=== PATIENT | female | born 1960 | race Caucasian/White ===

== ENCOUNTER → 2017-08-13 | Outpatient (CLI) | payer OTHER ==
--- NOTE | 2017-08-13 10:56 | RADIOLOGY IMAGING REPORT ---
FACILITY: [facility] - [place] PATIENT NAME: Taylor Diaz : 1960 MR: [id number] V: [id number] EXAM DATE: ORDERING PHYSICIAN: TEMITOPE SOL TECHNOLOGIST: Location: [facility] Patient: Taylor Diaz : 1960 Visit/Account:[id number] Date of Sevice: 08/13/2017 DEXA Scan Clinical history: Postmenopausal, ovarian failure, low back pain x10 years. Comparison: None available. LUMBAR SPINE: The bone mineral density (BMD) measured from L1-L4 correlates with a Z-score -0.9 and a T-score of -0 .7 which is Normal as defined by the World Health Organization. The corresponding risk of fracture i n the lumbar spine is 1-2 times increased compared with a young adult reference population. HIP: Bone mineral density (BMD) measured in the Left total hip region correlates with a Z-score -0.1 and a T-score of -0.1 which is Normal as defined by the World Health Organization. The corresponding risk of fracture in the hip is Not increased compared with a young adult reference population. T score left femoral neck -0.9 Bone mineral density (BMD) measured in the Femoral Neck region measures 0.915 g/cm2. Impression: 1. Lumbar spine: Normal. 2. Left Hip: Normal. 3. Femoral Neck: Bone Mineral Density is 0.915 g/cm2 T score the left femoral neck -0.9 falls withi n the normal range The next DEXA scan of this patient should include the following sites: L1-L4 and the left hip. FRAX? WHO Fracture Risk Assessment Tool link: <http://www.shef.ac.uk/FRAX/tool.jsp?locationValue=9> PLEASE NOTE: 1) The World Health Organization defines low BMD as follows: T-score Normal > -1 Osteopenia < -1 and > -2.5 Osteoporosis < -2.5 without fractures Established osteoporosis < -2.5 with fractures 2) In general, you may wish to consider: Diagnosis Treatment Follow-up DEXA Normal BMD Prevention 2-3 years Osteopenia Prevention/therapy 1-2 years Osteoporosis Therapy Yearly 3) Fracture risk estimated from the T-score is more accurate for vertebral fractures (often spontane ous) than for hip fractures. Report Dictated By: Siobhan Walker MD at 08/13/2017 10:52 AM Report E-Signed By: Siobhan Walker MD at 08/13/2017 10:53 AM AIYANAN:LY
--- NOTE | 2017-08-13 16:24 | RADIOLOGY IMAGING REPORT ---
FACILITY: [facility] PATIENT NAME: BROOKE CARR : [id number] MR: [id number] V: [id number] EXAM DATE: ORDERING PHYSICIAN: TEMITOPE SOL TECHNOLOGIST: Yisel Patrick PROCEDURE:BILATERAL DIGITAL SCREENING MAMMOGRAM WITH CAD ASSISTED INTERPRETATION & 3D TOMOSYNTHESIS COMPARISON:Prior mammograms 07/31/16, 07/07/15, 07/06/14, 10/14/12, 10/04/11. INDICATIONS:SCREENING FINDINGS: Mildly heterogeneous fibroglandular tissue is seen throughout the breasts. Most of the parenchymal pattern has remained stable allowing for difference in mammographic technique & patient positioning. There is a focal area of increased density in the upper portion of the Left breast on the Left MLO view in Zone 3 for which Spot compression view is recommended a Left XCC view is also recommended. DIAGNOSTIC CATEGORY 0--INCOMPLETE: NEED ADDITIONAL IMAGING EVALUATION. RECOMMENDATIONS: ADDITIONAL MAMMOGRAPHIC VIEWS REQUIRED: LEFT BREAST. IMPRESSION: BIRADS 0: Incomplete Additional view of Left breast recommended. Dictated by: Siobhan Walker M.D. on 08/13/2017 at 9:42 Transcribed by: TEVIN on 08/13/2017 at 9:55 Approved by: Siobhan Walker M.D. on 08/13/2017 at 16:23 [facility]
== END ==
LOC: MAMO 02:23
PROVIDERS: ATTEND Nurse Practitioner Family
DX: Z13.820 Encounter for screening for osteoporosis (principal); Z12.31 Encounter for screening mammogram for malignant neoplasm of breast; R92.8 Other abnormal and inconclusive findings on diagnostic imaging of breast; E28.39 Other primary ovarian failure
CPT/HCPCS: 77063; 77067; 77080

== ENCOUNTER → 2017-08-22 | Outpatient (CLI) | payer OTHER ==
--- NOTE | 2017-08-23 09:47 | RADIOLOGY IMAGING REPORT ---
FACILITY: [facility] [place] PATIENT NAME: BROOKE CARR : [id number] MR: [id number] V: [id number] EXAM DATE: ORDERING PHYSICIAN: TEMITOPE SOL TECHNOLOGIST: Gayla Alan PROCEDURE:US LEFT BREAST COMPARISON:None. INDICATIONS:FURTHER EVAL FINDINGS: In the 2 o'clock position Left breast 12cm from the nipple there is a cluster of cysts measuring 8mm collectively. In the 2 o'clock position Left breast 14cm from the nipple there is a cyst measuring 9.4mm in diameter. In the 1 o'clock position Left breast 9cm from the nipple there is a 5mm cyst. In the 4 o'clock position Left breast 9cm from the nipple there is a 1cm cyst. Several lipomas were also identified one in the 12 o'clock position measuring 1.5cm in diameter one in the 3 o'clock position measuring 1cm in diameter. DIAGNOSTIC CATEGORY 3--PROBABLY BENIGN FINDING. RECOMMENDATIONS: SIX MONTH FOLLOW-UP DIAGNOSTIC MAMMOGRAM: LEFT BREAST. IMPRESSION: BIRADS 3: Probably benign finding There are multiple Left sided breast cysts as described and 2 lipomas. A 6 month follow-up Left mammogram is recommended as described in Today's Left mammogram report. Dictated by: Siobhan Walker M.D. on 08/22/2017 at 16:03 Transcribed by: TEVIN on 08/23/2017 at 8:50 Approved by: Siobhan Walker M.D. on 08/23/2017 at 9:46 [facility]
--- NOTE | 2017-08-23 09:47 | RADIOLOGY IMAGING REPORT ---
FACILITY: [facility] PATIENT NAME: BROOKE CARR : [id number] MR: [id number] V: [id number] EXAM DATE: [id number] ORDERING PHYSICIAN: TEMITOPE SOL TECHNOLOGIST: Jannette Galeana PROCEDURE:LEFT DIGITAL DIAGNOSTIC MAMMOGRAM WITH CAD ASSISTED INTERPRETATION & 3D TOMOSYNTHESIS COMPARISON:Prior mammograms 08/13/17, 07/31/16, 07/07/15, 07/06/14, 10/14/12, 10/04/11. INDICATIONS:FURTHER EVAL FINDINGS: Patient returns for Spot compression views in the Left MLO projection, a Left XCC view and Left medial lateral view. A small amount of fibroglandular tissue is seen throughout the Left breast. The focal area of increased density in the upper outer portion of the Left breast found 3 on the prior Left MLO view is re-demonstrated. This was also demonstrated in the far lateral portion of the Left breast on the Left XCC view. Today's Left breast Ultrasound did demonstrate multiple cysts in the 1, 2 & 4 o'clock positions of the Left breast which may impart account for the mammographic findings however a 6 month follow-up Left mammogram is recommended to document stability. DIAGNOSTIC CATEGORY 3--PROBABLY BENIGN FINDING. RECOMMENDATIONS: SIX MONTH FOLLOW-UP DIAGNOSTIC MAMMOGRAM: LEFT BREAST. IMPRESSION: BIRADS 3: Probable benign finding A 6 month follow-up Left mammogram is recommended as described above. Dictated by: Siobhan Walker M.D. on 08/22/2017 at 16:01 Transcribed by: TEVIN on 08/23/2017 at 8:28 Approved by: Siobhan Walker M.D. on 08/23/2017 at 9:46 [facility]
== END ==
LOC: MAMO 01:53
PROVIDERS: ATTEND Nurse Practitioner Family
DX: N60.02 Solitary cyst of left breast (principal); D17.1 Benign lipomatous neoplasm of skin and subcutaneous tissue of trunk
CPT/HCPCS: 77065

== ENCOUNTER 2017-10-17 01:50 | Day surgery (SDC) | payer OTHER ==
[~2017-10-17] VITALS: Ht 175.3 cm; Wt 127.0 kg
[~2017-10-17 01:50] MED LIST: ATOR20TA65 PO; GEMF600T91 PO; LOSA-51 PO
[2017-10-17] MEDS ORDERED: PROPOFOL EMUL(*) 10MG/ML 20 ML 20 ML ONE ×2 (07:18→10:16)
--- NOTE | 2017-10-17 07:19 | Post Operative Progress Note ---
Post Operative Progress Note Date: Oct 17, 2017 Time: 10:35 Surgeon: julieta Anesthesia: dr echavarria Pre-Op Diagnosis: screening colonoscopy Post-Op Diagnosis: diverticulosis throughout colon. 2 cmm sessile polyp right colon removed piecemeal and 5 mm polyp at hepatic flexure and 5 mm polyp at 15 cm Procedure(s): colonoscopy and polypectomy ASHLEY DELGADO MD Oct 17, 2017 07:19
--- NOTE | 2017-10-17 07:20 | Short(Outpt) Discharge Summary ---
Discharge Summary Reason for Hosp/Final Diag: (1) Encounter for screening colonoscopy Hospital Course & Plan: guzman diverticulosis and 2 cm polyp in right colon and 5 mm polyps at hepatic flexure and 15 cm Departure Discharge to: Home Discharge Instructions Home Meds Reported Medications Gemfibrozil (GEMFIBROZIL) 600 Mg Tablet, 600 MG PO DAILY 10/10/17 Losartan/Hydrochlorothiazide (LOSARTAN-HCTZ 50-12.5 MG TAB) 1 Each Tablet, 1 EACH PO QDAY 10/10/17 Atorvastatin Calcium (ATORVASTATIN CALCIUM) 20 Mg Tablet, 1 TAB PO QDAY, TAB 10/10/17 Diet: High Fiber Activity: As Tolerated Special Instructions: will require repeat colonoscopy in 3 months ASHLEY DELGADO MD Oct 17, 2017 07:20
[2017-10-17 08:30] VITALS: BP 154/79
[2017-10-17] MEDS ORDERED: LIDOCAINE/SOD BICARB 8.4% SYR ID ONE (09:00)
[2017-10-17] MEDS ORDERED: NORMOSOL R SOLN(*) 1000 ML BAG 1,000 ML IV PRN (09:00)
[2017-10-17] MEDS ORDERED: NS 0.9% 20 ML SDV 20 ML ONE (09:56)
[2017-10-17 10:34] VITALS: BP 136/62
[2017-10-17 10:57] VITALS: BP 151/73
[2017-10-17 11:05] VITALS: BP 148/105
[2017-10-17 11:07] VITALS: BP 150/83
--- NOTE | 2017-10-18 03:45 | OPERATIVE REPORT 1 ---
EVENT DATE: October 17, 2017 SURGEON: Jose Alex MD ANESTHESIOLOGIST: Rigo Dsouza MD ANESTHESIA: Sedation PREOPERATIVE DIAGNOSIS Screening colonoscopy. POSTOPERATIVE DIAGNOSIS Diverticulosis throughout the entire colon. She had a large 3 cm sessile polyp 5 cm above the ileocecal valve that was removed piecemeal fashion. She had a 5 mm polyp at the hepatic flexure, and she had another 5 mm polyp at 15 cm. PROCEDURE Colonoscopy with polypectomies. DESCRIPTION OF PROCEDURE Patient was placed in the left lateral decubitus position, given intravenous sedation. Flexible colonoscope was inserted and advanced to the cecum. She had an excellent bowel prep. Ileocecal valve, base of cecum were identified. Scope was slowly withdrawn. No abnormalities were noted in the cecum, except she had a diverticulum just above the cecum. She had diverticula in the right colon as well. 5 cm or so above the ileocecal valve, she had a large probably about 2 cm sessile polypoid projection. Pictures were taken. We first placed saline in the submucosal tissue because we were going to have to remove this in a piecemeal fashion, and that is what we did, making repeated passes with the snare and removing as much of this polyp as we could. We then retrieved multiple pieces. We got this as cleared up as best we could. Difficult to tell if we had complete removal because of the cautery effect on the tissues. We then slowly withdrew. At the hepatic flexure, she had a 5 mm polyp. This was removed with a polypectomy snare, cautery and retrieved. Transverse colon showed some diverticula, as did the descending and sigmoid colon. At 15 cm, she had another 5 mm polyp. This was remove with the polypectomy snare, cautery and retrieved. The rest of the rectum was normal. Scope was retroflexed. That appeared to be normal. Patient will require repeat colonoscopy in about three months to reevaluate the right colon to see if we had complete clearing of that polyp. ROSA
== END 2017-10-17 11:21 | disposition home or self-care (01) ==
LOC: OR 01:50
PROVIDERS: ATTEND Surgery
DX: Z12.11 Encounter for screening for malignant neoplasm of colon (principal); D12.2 Benign neoplasm of ascending colon; D12.3 Benign neoplasm of transverse colon; K57.30 Diverticulosis of large intestine without perforation or abscess without bleeding; E66.01 Morbid (severe) obesity due to excess calories; Z68.41 Body mass index [BMI] 40.0-44.9, adult; I10 Essential (primary) hypertension; E78.5 Hyperlipidemia, unspecified; Z90.49 Acquired absence of other specified parts of digestive tract; Z91.040 Latex allergy status
CPT/HCPCS: 00811; 45379; 88305; C1773; J2704; J7050

== ENCOUNTER 2017-12-19 00:42 | Day surgery (SDC) | payer OTHER ==
[~2017-12-19] VITALS: Ht 175.3 cm; Wt 128.4 kg
[~2017-12-19 00:42] MED LIST changes: -GEMF600T91 PO; +GEMF600T92 PO
[2017-12-19 07:41] VITALS: BP 158/103
[2017-12-19] MEDS ORDERED: NORMOSOL R SOLN(*) 1000 ML BAG 1,000 ML IV PRN (08:00)
[2017-12-19] MEDS ORDERED: LIDOCAINE/SOD BICARB 8.4% SYR ID ONE (08:00)
[2017-12-19] MEDS ORDERED: METOCLOPRAMIDE 10 MG/2 ML SDV ONE (09:20)
[2017-12-19 09:55] VITALS: BP 99/62
[2017-12-19 10:26] VITALS: BP 125/91
[2017-12-19 10:28] VITALS: BP 148/94
[2017-12-19 10:30] VITALS: BP 128/102
== END 2017-12-19 10:45 | disposition home or self-care (01) ==
LOC: OR 00:42
PROVIDERS: ATTEND Internal Medicine Gastroenterology
DX: Z12.11 Encounter for screening for malignant neoplasm of colon (principal); D12.3 Benign neoplasm of transverse colon; K57.30 Diverticulosis of large intestine without perforation or abscess without bleeding; K64.9 Unspecified hemorrhoids; I10 Essential (primary) hypertension; E78.5 Hyperlipidemia, unspecified; Z86.010 Personal history of colon polyps; Z68.41 Body mass index [BMI] 40.0-44.9, adult; E66.01 Morbid (severe) obesity due to excess calories
CPT/HCPCS: 00811; 45384; 88305; J2765

== ENCOUNTER → 2018-03-12 | Outpatient (CLI) | payer OTHER ==
--- NOTE | 2018-03-12 14:15 | RADIOLOGY IMAGING REPORT ---
FACILITY: [facility] [place] PATIENT NAME: BROOKE CARR : [id number] MR: [id number] V: [id number] EXAM DATE: [id number] ORDERING PHYSICIAN: TEMITOPE SOL TECHNOLOGIST: Jannette Galeana PROCEDURE:LEFT DIGITAL DIAGNOSTIC MAMMOGRAM WITH CAD ASSISTED INTERPRETATION & 3D TOMOSYNTHESIS COMPARISON:Prior mammograms 08/22/17, 08/13/17, 07/31/16, 07/07/15, 07/06/14, 10/14/12. INDICATIONS:SIX MONTH FOLLOW-UP FINDINGS: The patient received full field Left CC, MLO view & XCC views in addition to Spot compression view in Left MLO projection. The small focal area of increased density in the far upper outer quadrant of the Left breast in the posterior 1/3 actually appeared slightly less prominent when compared to the prior mammograms from 08/13/17. No sonographic correlate could be identified. The remainder of the parenchymal pattern has remained stable as well. DIAGNOSTIC CATEGORY 3--PROBABLY BENIGN FINDING. RECOMMENDATIONS: SIX MONTH FOLLOW-UP DIAGNOSTIC MAMMOGRAM: BILATERAL BREASTS. IMPRESSION: BIRADS 3: Probably benign finding. A 6 month follow-up bilateral mammogram is recommended at which time the patient will be due for her annual mammogram. Dictated by: Siobhan Walker M.D. on 03/12/2018 at 12:11 Transcribed by: TEVIN on 03/12/2018 at 13:22 Approved by: Siobhan Walker M.D. on 03/12/2018 at 14:14 [facility]
--- NOTE | 2018-03-12 14:16 | RADIOLOGY IMAGING REPORT ---
[place] [facility] [place] NAME: BROOKE CARR : [id number] MR: [id number] V: [id number] EXAM DATE: [id number] ORDERING PHYSICIAN: TEMITOPE SOL TECHNOLOGIST: Kj Pham RDMS, RDCS PROCEDURE:US LEFT BREAST COMPARISON:Prior Left breast Ultrasound 08/22/17 Prior Left mammogram 08/22/17 & Today's diagnostic Left mammogram. INDICATIONS:SIX MONTH FOLLOW-UP FINDINGS: In the 12 o'clock position of the Left breast 9cm from the nipple is a 1.3 x 0.8 x 1.3cm ovoid echogenic nodule just beneath the skin. In the 1 o'clock position of the Left breast 5cm from the nipple there is a 1.2 x 0.4 x 1.3cm ovoid echogenic nodule just beneath the skin. In the 3 o'clock position of the Left breast 10cm from the nipple there is a 1cm cyst. In the 3 o'clock position of the Left breast 6cm from the nipple is an ovoid well circumscribed echogenic nodule measuring 2.1 x 2.2 x 0.5cm just beneath the skin. In the 3 o'clock position of the Left breast 9cm from the nipple there is a 3.2mm cyst. In the 3 o'clock position of the Left breast 10cm from the nipple there is a 9 x 6 x 3mm fatty replaced lymph node. In the 3 o'clock position of the Left breast 10cm from the nipple also noted is a small cluster of cysts. In the gene of the Left axilla demonstrated no abnormality. DIAGNOSTIC CATEGORY 3--PROBABLY BENIGN FINDING. RECOMMENDATIONS: SIX MONTH FOLLOW-UP DIAGNOSTIC MAMMOGRAM: BILATERAL BREASTS. IMPRESSION: BIRADS 3: Probably benign finding. There are multiple cysts and echogenic nodules likely representing small lipomas or fatty replaced lymph nodes in the upper outer quadrant of the Left breast. This does not likely account for the recent mammographic findings although the mammographic findings are stable when compared to the most recent mammogram therefore a 6 month follow-up bilateral mammogram is recommended at which time the patient will be due for her annual mammogram. Dictated by: Siobhan Walker M.D. on 03/12/2018 at 12:04 Transcribed by: TEVIN on 03/12/2018 at 13:35 Approved by: Siobhan Walker M.D. on 03/12/2018 at 14:14 [facility]
== END ==
LOC: MAMO 01:05
PROVIDERS: ATTEND Nurse Practitioner Family
DX: N60.02 Solitary cyst of left breast (principal)
CPT/HCPCS: 77061; 77065

== ENCOUNTER → 2018-10-01 | Outpatient (CLI) | payer OTHER ==
[~2018-10-01] MED LIST changes: -GEMF600T92 PO; +GEMF600T96 PO
--- NOTE | 2018-10-02 11:49 | RADIOLOGY IMAGING REPORT ---
FACILITY: [facility] PATIENT NAME: BROOKE CARR : [id number] MR: [id number] V: [id number] EXAM DATE: ORDERING PHYSICIAN: TEMITOPE SOL TECHNOLOGIST: Jannette Galeana PROCEDURE:BILATERAL DIAGNOSTIC DIGITAL MAMMOGRAM WITH CAD ASSISTED INTERPRETATION & 3D TOMOSYNTHESIS REASON FOR STUDY: 6 month follow-up. FAMILY HISTORY OF BREAST CANCER: Paternal grandmother, BREAST PROCEDURES/TREATMENTS: None. COMPARISON STUDIES: Prior mammograms 03/12/18, 08/22/17, 08/13/17, 07/31/16, 07/07/15, 07/06/14. VIEWS OBTAINED: 2D & 3D full field CC & MLO. BREAST DENSITY: There are scattered areas of fibroglandular density throughout the breasts. MAMMOGRAM FINDINGS: The parenchymal pattern throughout the breasts has remained stable allowing for difference in mammographic technique & patient positioning. DIAGNOSTIC CATEGORY 1--NEGATIVE. RECOMMENDATIONS: ROUTINE MAMMOGRAM AND CLINICAL EVALUATION. IMPRESSION: BIRADS 1: Negative. Dictated by: Siobhan Walker M.D. on 10/01/2018 at 16:56 Transcribed by: TEVIN on 10/02/2018 at 9:43 Approved by: Siobhan Walker M.D. on 10/02/2018 at 11:48 [facility]
== END ==
LOC: MAMO 00:54
PROVIDERS: ATTEND Nurse Practitioner Family
DX: R92.8 Other abnormal and inconclusive findings on diagnostic imaging of breast (principal)
CPT/HCPCS: 77062; 77066